=== PATIENT | male | born 1985 ===

== ENCOUNTER 2017-07-25 08:29 | Emergency (ER) | payer OTHER ==
[2017-07-25 08:39] VITALS: RESP 18; TEMP 98.6; O2SAT 99
[2017-07-25] MEDS ORDERED: Lidocaine 1% Inj (20ml) ONE (08:53)
--- NOTE | 2017-07-25 10:25 | ED PDOC ---
Arrival/HPI - General Historian: Patient - History of Present Illness Time/Duration: Prior to Arrival, 1 hour Symptom Onset: Sudden Symptom Course: Improving Quality: Aching, Stabbing Severity Level: 7 - General Chief Complaint: Abnormal Skin Integrity Time Seen by Provider: 07/25/17 08:54 - History of Present Illness Narrative History of Present Illness (Text): 07/25/17 10:22 32M presents to [facility] [facility] w/ laceration on Left 4th digit (ring finger) after cutting it w/ a clean knife earlier today. Patient immediately started applying pressure and came to the ED. Motor and sensation in tact. Denies: Fevers, chills, LOC, numbness/tingling in extremities, chest pain, shortness of breath (Virgilio Calvillo) Past Medical History - Provider Review Nursing Documentation Reviewed: Yes - Travel History Have you recently traveled outside [place] w/in the past 3 mons?: No - Past History Past History: No Previous - Infectious Disease Hx of Infectious Diseases: None - Psychiatric Hx Substance Use: No - Surgical History Hx Appendectomy: Yes - Anesthesia Hx Anesthesia: Yes Hx Anesthesia Reactions: No Family/Social History Family/Social History: Other (non-contributory) Smoking Status: Unknown If Ever Smoked Hx Alcohol Use: No Hx Substance Use: No Allergies/Home Meds Allergies/Adverse Reactions: Allergies No Known Allergies Allergy (Verified 07/25/17 08:39) Review of Systems - Physician Review All systems were reviewed & negative as marked: Yes - Review of Systems Constitutional: Normal Eyes: Normal ENT: Normal Respiratory: Normal Cardiovascular: Normal Gastrointestinal: Normal Genitourinary Male: Normal Musculoskeletal: Normal Skin: Laceration (left 4th digit) Neurological: Normal Endocrine: Normal Hemo/Lymphatic: Normal Physical Exam Vital Signs Reviewed: Yes Temperature: Afebrile Blood Pressure: Normal Pulse: Regular Respiratory Rate: Normal Appearance: Positive for: Well-Appearing, Non-Toxic, Comfortable Pain Distress: None Mental Status: Positive for: Alert and Oriented X 3 - Systems Exam Head: Present: Atraumatic, Normocephalic Extroacular Muscles: Present: EOMI Conjunctiva: Present: Normal Mouth: Present: Moist Mucous Membranes Respiratory/Chest: Present: Clear to Auscultation, Good Air Exchange. No: Respiratory Distress, Accessory Muscle Use Cardiovascular: Present: Regular Rate and Rhythm, Normal S1, S2. No: Murmurs Abdomen: No: Tenderness, Distention, Peritoneal Signs Upper Extremity: Present: Normal ROM, NORMAL PULSES, Neurovascularly Intact, Other (laceration on distal left 4th digit (ring finger) Laceration involving skin, subQ, and fat. Neruovascular intact). No: Cyanosis, Edema Lower Extremity: Present: Normal Inspection. No: Edema, CALF TENDERNESS Neurological: Present: GCS=15, Speech Normal Skin: Present: Warm, Laceration (Left distal 4th digit) Psychiatric: Present: Alert, Oriented x 3 Vital Signs Temp Pulse Resp BP Pulse Ox 07/25/17 08:36 98.6 F 94 H 18 141/94 H 99 Medical Decision Making ED Course and Treatment: 07/25/17 10:27 laceration involves skin, subQ, dermis Will do beside repair under local digital block anesthetic 3-0 and 4-0 monofilament non-absorbable [address] (Virgilio Calvillo) 07/25/17 11:00 Seen and examined with resident. 32 y/o M p/w finger laceration with clean knife. Motor and sensation intact. (Thanh Ambrosio) Disposition/Present on Arrival - Present on Arrival Any Indicators Present on Arrival: No History of DVT/PE: No History of Uncontrolled Diabetes: No Urinary Catheter: No History of Decub. Ulcer: No History Surgical Site Infection Following: None - Disposition Have Diagnosis and Disposition been Completed?: Yes Disposition Time: 10:29 Patient Plan: Discharge - Disposition Diagnosis: Laceration of finger of left hand without damage to nail Disposition: HOME/ ROUTINE Patient Problems: Current Active Problems Problem Status Onset Laceration of finger of left hand without damage to nail Acute Condition: STABLE Discharge Instructions (ExitCare): Laceration Repair With Stitches (DC) Additional Instructions: Thank you for letting us take care of you today. You were treated for laceration of left 4th digit. The emergency medical care you received today was directed at your acute symptoms. If you were prescribed any medication, please fill it and take as directed. It may take several days for your symptoms to resolve. Return to the Emergency Department if your symptoms worsen, do not improve, or if you have any other problems. Wound was irrigated w/ iodine and normal saline and closed w/ non-absorbable stitches. Steri-strips were applied on top. The steris can stay on for 3-5 days. can shower and keep the area clean. Can return back to the ER in 10 days for suture removal. In this packet we have listed two hand specialist if you decide you would like to see one. Please contact your doctor or call one of the physicians/clinics you have been referred to that are listed on the Patient Visit Information form that is included in your discharge packet. Bring any paperwork you were given at discharge with you along with any medications you are taking to your follow up visit. Our treatment cannot replace ongoing medical care by a primary care provider (PCP) outside of the emergency department. Thank you for allowing the [facility] team to be part of your care today. Prescriptions: Ibuprofen [Motrin Tab] 800 mg PO Q6 PRN #30 tab PRN Reason: Pain, Moderate (4-7) Referrals: Zach Beasley MD [Primary Care Provider] - Follow up with primary Laine Velazquez MD [Staff Provider] - Follow up with primary Harjit Ornelas MD [Staff Provider] - Follow up with primary Forms: [employer] ([employer])
--- NOTE | 2017-07-25 10:41 | PCM.PROC ---
Procedures Attestation:: I certify that I have explained the specified Operation(s) or Procedure(s), risks, benefits and reasonable alternatives to the Patient and/or other person responsible. The opportunity was given to ask questions and all questions answered - Laceration lidocaine 1% simple, single layer irregular deep structures intact left hand 4-0 dexon nerve block simple, interrupted simple, interrupted other Site: hand Side (if applicable): left Size (cm): 6 Description: flap, irregular, contaminated Depth: simple, single layer Anesthesia used: lidocaine 1% Anesthesia technique: local infiltration, nerve block Amount (mLs): 5 Pre-repair: wound explored, irrigated extensively, deep structures intact Skin layer closed with: dexon Size: 3-0, 4-0 Number of sutures: 5 Technique: simple, interrupted, other (one verticle mattress and the site of greatest bleeding)
[2017-07-25 11:21] VITALS: BP 110/78; PULSE 72
== END 2017-07-25 10:20 | disposition home or self-care (01) ==
LOC: ED 08:29
DX: S61.215A Laceration without foreign body of left ring finger without damage to nail, initial encounter (principal); W26.0XXA Contact with knife, initial encounter